=== PATIENT | female | born 1990 | race Two or more races ===

== ENCOUNTER 2017-04-16 03:11 | Emergency (ER) | payer BC, OTHER ==
[~2017-04-16] VITALS: Ht 152.4 cm; Wt 49.9 kg
--- NOTE | 2017-04-16 03:20 | NUR ---
TO BED 6 A 27 YO FEMALE BIBPARENTS AND PT C/O COUGH AND STATES SHE FELT SOB TODAY AND TOOK A NEBULIZER TREATMENT AT HOME AND SHE SAID SHE DOESNT FEEL BETTER. ON ROOM AIR, PATIENT IS SATTING AT 98-100%. MILD WHEEZING AUSCULTATED ON THE LUNGS. VSS. AFEBRILE. GOWNED. INITIATED COMFORT MEASURES. AWAITING FOR ER MD BEGUM.
[2017-04-16] MEDS ORDERED: ALBUTEROL FS 2.5 MG/3 ML VIAL.NEB ONE (03:28)
[2017-04-16] MEDS ORDERED: ALBUTEROL FS 2.5 MG/3 ML VIAL.NEB NEB ONE (03:30)
[2017-04-16] MEDS ORDERED: DEXAMETHASONE SOD PHOSPHATE 10 MG/ML VIAL IV ONE (03:30)
[2017-04-16] MEDS ORDERED: DEXAMETHASONE SOD PHOSPHATE 10 MG/ML VIAL ONE (03:32)
--- NOTE | 2017-04-16 03:38 | NUR ---
ongoing breathing treatment.
--- NOTE | 2017-04-16 04:37 | NUR ---
Patient discharged to home in stable condition. Written and verbal after care instructions given. Patient verbalizes understanding of instruction. Patient is ambulatory with steady gait, accompanied by family. No further complaints.
[2017-04-16 04:38] VITALS: BP 118/67
== END 2017-04-16 04:38 | disposition home or self-care (01) ==
LOC: ER 03:13
DX: J45.901 Unspecified asthma with (acute) exacerbation (principal)
CPT/HCPCS: 94640 ×2; 99284; A4606; J1100; Z7610